=== PATIENT | male | born 1985 ===

== ENCOUNTER → 2017-02-09 | Outpatient (CLI) | payer OTHER ==
[~2017-02-09] MED LIST: CLR10 PO; IBUP-1050 PO
--- NOTE | 2017-02-09 08:58 | DIAGNOSTIC IMAGING REPORT ---
FUSION CT SINUSES W/O HISTORY: J30.9 Allergic [id number] Nasal septal [id number] Hypertr TECHNIQUE: Multiaxial CT images of the sinuses were performed and reformatted in the coronal plane without contrast. COMPARISON STUDY: None. FINDINGS: The frontal sinuses are clear. The mastoid air cells are clear. Minimal mucosal thickening within the sphenoid sinuses. Mild mucosal thickening within a few of the bilateral ethmoid air cells. Moderate polypoid mucosal thickening within the floor of the bilateral maxillary sinuses, right greater than left. No fluid levels within the paranasal sinuses. The lamina papyracea and orbital floors are intact. The left ostiomeatal unit is patent. Partial opacification of the right ethmoid infundibulum. Mild left nasal septal deviation. There is a small right nasal septal spur. The orbits are unremarkable. The visualized brain parenchyma is within normal limits. IMPRESSION: 1. Mild/moderate mucosal thickening within the paranasal sinuses as described above. No fluid levels. 2. The mastoid air cells are clear. 3. Mild left nasal septal deviation. Electronically signed by: Shan Dunn M.D. 02/09/2017 8:57 AM Dictated Date/Time: 02/09/2017 8:53 AM
== END | disposition home or self-care (01) ==
LOC: C.CTS 07:56
PROVIDERS: ATTEND Physician Assistant
DX: J34.2 Deviated nasal septum (principal); J30.9 Allergic rhinitis, unspecified; J34.3 Hypertrophy of nasal turbinates

== ENCOUNTER → 2017-04-13 | Day surgery (SDC) | payer OTHER ==
[2017-03-06 15:57] VITALS: Ht 165.1 cm; Wt 100.0 kg
[2017-04-11 17:22] LABS: BASO % 0.4 %; BASO ABS # 0.03 K/uL (0-0.2); COMPLETE YES; EOS % 3.5 %; HEMATOCRIT 35.2 % (42-52); IG% 0.1 %; LYMPH ABS # 3.04 K/uL (1.2-3.4); MEAN CELL VOLUME 80.7 fL (80-100); MEAN CORPUSCULAR HEMOGLOBIN 27.1 pg (25-34); MEAN CORPUSCULAR HGB CONC 33.5 g/dl (32-36); MEAN PLATELET VOLUME 9.2 fL (7.4-10.4); MONO % 6.1 %; NEUT % 45.9 %; PLATELET COUNT 338 K/uL (130-400); RED BLOOD COUNT 4.36 M/uL (4.7-6.1); WHITE BLOOD COUNT 6.91 K/uL (4.8-10.8)
[2017-04-11 17:33] LABS: PARTIAL THROMBOPLASTIN RATIO 1.1; PROTHROMBIN TIME (PATIENT) 10.3 SECONDS (9.0-12.0)
[2017-04-11 17:38] LABS: POTASSIUM 3.9 mmol/L (3.5-5.1)
[~2017-04-13] VITALS: Ht 165.1 cm; Wt 100.0 kg
[~2017-04-13] MED LIST changes: +ATROPINE SULFATE 0.1 MG/ML 5ML SYR IV PRN; +CEFAZOLIN 2000 MG/60 ML D5W IV SCH; +DEXAMETHASONE SOD INJ 4 MG/ML VIAL ONE; +EpHEDrine SULFATE INJ 50 MG/ML AMP IV PRN; +EpINEphrine INJ 1MG/ML AMP 1 MG/ML AMP ONE; +FENTANYL CITRATE INJ 50 MCG/1 ML 2 ML VIAL IV PRN; +FENTANYL CITRATE INJ 50 MCG/1 ML 2 ML VIAL ONE; +FLUMAZENIL 0.1 MG/1 ML 10 ML VIAL IV PRN; +HYDROCODONE/ACETAMOPHEN 5/325MG TAB PO PRN; +HYDROmorphone INJ 2 MG/ML SYR/VIAL IV PRN; +LABETALOL HCL IV 5 MG/ML 20ML IV PRN; +LACTATED RINGER'S 1000ML 1,000 ML IV SCH; +LIDOCAINE 4% MPF SOAK 5 ML = 1 DOSE TOP ONE; +LIDOCAINE HCL 2% 2 ML VIAL (20MG/ML) ONE; +LIDOCAINE/EPINEPHRINE 1% INJ 50 ML VIAL ONE; +MEPERIDINE HCL 25 MG/ML CARP IV PRN; +MIDAZOLAM HCL 1 MG/ML 2ML VIAL ONE; +NALOXONE HCL 0.4 MG/1 ML VIAL/CARP IV PRN; +ONDANSETRON INJ 2 MG/ML 2 ML VIAL IV PRN; +ONDANSETRON INJ 2 MG/ML 2 ML VIAL ONE; +OXYMETAZOLINE HCL 0.05% NA SPR 15 ML BTL PRN; +OXYMETAZOLINE HCL 0.05% NA SPR 15 ML BTL SCH; +PHENYLEPHRINE 100MCG/ML 5ML SYR IV PRN; +PROPOFOL IV EMULSION 10 MG/ML 20 ML VIAL IV ONE; +SUCCINYLCHOLINE CHLORIDE 20 MG/ML 10 ML VIAL IV ONE
--- NOTE | 2017-04-13 10:06 | History and Physical: Surg Cnt ---
History & Physical Date Apr 13, 2017. Chief Complaint CHRONIC SINUSITIS, SEPTAL DEVIATION, BILATERAL INFERIOR TURBINATE HYPERTROPHY History of Present Illness The patient is a 31 year old male with complaints of CHRONIC SINUSITIS, SEPTAL DEVIATION, BILATERAL INFERIOR TURBINATE HYPERTROPHY WITH SYMPTOMS DESPITE MAXIMAL MEDICAL RX. Past Medical/Surgical History Medical Problems: (1) EXT HEMRRHOID W COMP NEC (2) No Known Active Medical Problems PSH: S/P LASIK, S/P CYSTOSCOPY, S/P URETHROPLASTY Additional History Hepatic Disease: No Endocrine Disorder: No Kidney Disease: No Hypertension: No Heart Disease: No Bleeding Tendencies: No Infectious Diseases: No Allergies Coded Allergies: No Known Allergies (Unverified , 04/13/17) Home Medications Scheduled Loratadine (Claritin), 10 MG PO QAM Scheduled PRN Ibuprofen (Advil), 200 MG PO DAILY PRN for Pain Physical Examination Skin: warm/dry, no rash Eyes: normal inspection, EOMI, sclerae normal ENT: + pertinent finding (L>R DNS, B ITH, B MTH) Head: normocephalic, atraumatic Neck: supple, no adenopathy, trachea midline Respiratory/Chest: lungs clear, normal breath sounds, no respiratory distress Cardiovascular: regular rate, rhythm, no edema, no murmur Neurologic/Psych: no motor/sensory deficits, alert, normal reflexes, oriented x 3 Diagnosis CHRONIC SINUSITIS, SEPTAL DEVIATION, BILATERAL INFERIOR TURBINATE HYPERTROPHY Plan of Treatment B FESS/SEPTOPLASTY/INFERIOR TURBINATE REDUCTION
--- NOTE | 2017-04-13 11:22 | [facility] Operative Report ---
Operative Report Operative Date Apr 13, 2017. Pre-Operative Diagnosis Chronic Sinusitis, Septal Deviation, Bilateral Inferior Turbinate Hypertrophy Post-Operative Diagnosis Same Procedure(s) Performed Bilateral Endoscopic Sinus Surgery, Septoplasty, Bilateral Inferior Turbinate Reduction Surgeon Dr. Ashby System Safety Engineer Surgeon(s) None Estimated Blood Loss 50 mL Findings 1. MODERATE L>R DNS 2. SEVERE B ITH 3. B JULISSA BULLOSA 4. MUCOSAL INFLAMMATION B MAXILLARY AND ETHMOID SINUSES Specimens None I attest to the content of the Intraoperative Record and any orders documented therein. Any exceptions are noted below.
--- NOTE | 2017-04-13 11:25 | Discharge Instructions ---
Discharge Instructions Date of Service Apr 13, 2017. Admission Reason for Admission: Nasal Septal Deviation, Hypertrophy Turbinates, Discharge Discharge Diagnosis / Problem: SAME Discharge Goals Goal(s): Therapeutic intervention Activity Recommendations Activity Limitations: as noted below 1. LIGHT ACTIVITY FOR 2 WEEKS 2. NO DRIVING WHILE ON NORCO . Current Hospital Diet Patient's current hospital diet: Discharge Diet Recommended Diet: Regular Diet Procedures Procedures Performed: Bilateral Endoscopic Sinus Surgery, Septoplasty, Bilateral Inferior Turbinate Reduction Pending Studies Studies pending at discharge: no Medical Emergencies . Who to Call and When: Medical Emergencies: If at any time you feel your situation is an emergency, please call 911 immediately. . Non-Emergent Contact Non-Emergency issues call your: Surgeon . . "Provider Documentation" section prepared by David Ashby. . VTE Core Measure Inpt VTE Proph given/why not?: SCD's
[2017-04-13 12:08] VITALS: TEMP 36.4
--- NOTE | 2017-04-13 12:09 | Anesthesia Progress Nt - [facility] ---
Anesthesia Post Op Note Date & Time Apr 13, 2017 at 12:09 Vital Signs Pain Intensity: 0 Vital Signs Past 12 Hours Date Time Temp Pulse Resp B/P (MAP) Pulse Ox O2 Delivery O2 Flow Rate FiO2 04/13/17 12:01 74 12 04/13/17 12:01 72 12 124/83 99 04/13/17 12:00 36.7 73 12 124/83 99 Room Air 04/13/17 11:56 77 15 04/13/17 11:56 78 15 135/80 92 04/13/17 11:51 80 7 04/13/17 11:51 79 7 142/82 96 04/13/17 11:46 75 4 04/13/17 11:46 76 4 130/82 100 04/13/17 11:41 74 4 04/13/17 11:41 74 4 133/80 100 04/13/17 11:36 76 2 129/82 100 04/13/17 11:36 77 2 04/13/17 11:31 84 147/89 99 04/13/17 11:31 84 04/13/17 11:31 36.3 85 16 147/87 100 Humidified Oxygen 6 Diffusion Mask 04/13/17 08:54 36.3 79 16 130/85 (100) 97 Room Air Notes Mental Status: alert / awake / arousable, participated in evaluation Pt Amnestic to Procedure: Yes Nausea / Vomiting: adequately controlled Pain: adequately controlled Airway Patency, RR, SpO2: stable & adequate BP & HR: stable & adequate Hydration State: stable & adequate Anesthetic Complications: no major complications apparent
[2017-04-13 12:26] VITALS: BP 118/78; PULSE 74; O2SAT 99
--- NOTE | 2017-04-13 14:24 | OPERATIVE REPORT ---
DATE OF OPERATION: 04/13/2017 PREOPERATIVE DIAGNOSES: 1. Chronic rhinosinusitis. 2. Septal deviation. 3. Bilateral inferior turbinate hypertrophy. POSTOPERATIVE DIAGNOSES: 1. Chronic rhinosinusitis. 2. Septal deviation. 3. Bilateral inferior turbinate hypertrophy. PROCEDURES: 1. Bilateral endoscopic laurel bullosa resection. 2. Bilateral maxillary antrostomies. 3. Bilateral complete ethmoidectomies. 4. Septoplasty. 5. Bilateral inferior turbinate outfracture and turbinoplasty. SURGEON: Dr. David Ashby. ANESTHESIA: General endotracheal. ESTIMATED BLOOD LOSS: 50 mL. FINDINGS: 1. Bilateral laurel bullosa. 2. Moderate mucosal thickening involving the bilateral maxillary and ethmoid sinuses with severe inflammatory tissue. 3. Left greater than right septal deviation. 4. Severe bilateral inferior turbinate hypertrophy. SPECIMENS: None. COMPLICATIONS: None. INDICATIONS FOR THE PROCEDURE: The patient is a 31-year-old male with the above-mentioned history, which has been refractory to maximal medical therapy including systemic antibiotics and steroids. A CT scan of the sinuses revealed left greater than right septal deviation, bilateral maxillary sinus mucosal thickening with left greater than right ostiomeatal complex obstruction, and bilateral patchy ethmoid sinus mucosal thickening with severe bilateral inferior turbinate hypertrophy. The patient presents for the above-mentioned procedures on an outpatient elective basis. DESCRIPTION OF PROCEDURE: After informed consent had been obtained from the patient, the patient was wheeled to the operating room and placed on the operating table in the supine position. Monitors were placed. After induction of general endotracheal anesthesia, the patient was prepped in the usual fashion for an endoscopic sinus surgery. Lidocaine and epinephrine pledgets were placed into the bilateral nasal cavities and pressure applied. The left-sided pledgets were removed. A freer elevator was used to medialize the left middle turbinate. The left middle turbinate and lateral nasal wall were injected with 1% lidocaine with 1:100,000 epinephrine. Lidocaine and epinephrine pledget was then placed into the left middle meatus. The right side was then addressed in a similar fashion. The left-sided pledget was removed. A sickle knife was used to incise the left middle turbinate longitudinally and the lateral half of the middle turbinate was removed using straight Fredy-Cut forceps and powered instrumentation in order to perform an endoscopic left laurel bullosa resection. A freer elevator was then used to incise the uncinate process and a straight Fredy-Cut forceps and powered instrumentation was used to perform an uncinatectomy on the left hand side. The natural ostia of the left maxillary sinus was identified and this was enlarged anteriorly, inferiorly, and posteriorly using backbiting forceps and powered instrumentation. A complete ethmoidectomy was then performed using powered instrumentation. The right side was then addressed in a similar fashion with similar intraoperative findings. The nasal septum was then injected with 1% lidocaine with 1:100,000 epinephrine. A #15 scalpel was used to make a left Trav incision, through which the left-sided mucoperichondrial and mucoperiosteal flap was elevated. A #15 scalpel was then used to incise the quadrangular cartilage with care to preserve a 1.5-cm dorsal and caudal strut and the right-sided mucoperichondrial and mucoperiosteal flap was elevated through this cartilaginous incision. A Enrico Swivel knife was then used to remove the deviated portion of the quadrangular cartilage. A V-shaped osteotome, mallet, and Shai forceps was then used to remove a large bony septal spur, which was impinging on the airway posteriorly on both the left and the right hand side. It was more posteriorly on the right and more in the mid septum on the left. This resulted in the midline septum. The septal cavity was suctioned. The left Coppell incision was closed with several simple interrupted 4-0 chromic sutures. A 4-0 plain gut suture on a Ed needle was then used to perform a quilting stitch of the mucoperichondrial and mucoperiosteal flaps bilaterally to help prevent septal hematoma. A Ngo elevator was then used to infracture and subsequently outfracture the inferior turbinates bilaterally. These were injected with 1% lidocaine with 1:100,000 epinephrine. A 2.0-mm turbinate blade using powered instrumentation was then used to perform bilateral inferior turbinoplasties in a submucosal fashion. Sinonasal cavities and nasopharynx were then suctioned. Merogel was then placed into the bilateral ethmoid cavity/middle meati. An orogastric tube was placed and the stomach was suctioned free of air and stomach contents. This marked the end of the case. The patient tolerated the procedure well. There were no apparent complications. The patient was extubated and transferred to recovery room in stable condition. I attest to the content of the Intraoperative Record and any orders documented therein. Any exception s are noted below.
== END | disposition home or self-care (01) ==
LOC: X.SURG 08:43
DX: J32.9 Chronic sinusitis, unspecified (principal); J34.2 Deviated nasal septum; J34.3 Hypertrophy of nasal turbinates

== ENCOUNTER → 2017-08-08 | Outpatient (CLI) | payer OTHER ==
[~2017-08-08] MED LIST changes: -ATROPINE SULFATE 0.1 MG/ML 5ML SYR IV PRN; -CEFAZOLIN 2000 MG/60 ML D5W IV SCH; -DEXAMETHASONE SOD INJ 4 MG/ML VIAL ONE; -EpHEDrine SULFATE INJ 50 MG/ML AMP IV PRN; -EpINEphrine INJ 1MG/ML AMP 1 MG/ML AMP ONE; -FENTANYL CITRATE INJ 50 MCG/1 ML 2 ML VIAL IV PRN; -FENTANYL CITRATE INJ 50 MCG/1 ML 2 ML VIAL ONE; -FLUMAZENIL 0.1 MG/1 ML 10 ML VIAL IV PRN; -HYDROCODONE/ACETAMOPHEN 5/325MG TAB PO PRN; -HYDROmorphone INJ 2 MG/ML SYR/VIAL IV PRN; -IBUP-1050 PO; -LABETALOL HCL IV 5 MG/ML 20ML IV PRN; -LACTATED RINGER'S 1000ML 1,000 ML IV SCH; -LIDOCAINE 4% MPF SOAK 5 ML = 1 DOSE TOP ONE; -LIDOCAINE HCL 2% 2 ML VIAL (20MG/ML) ONE; -LIDOCAINE/EPINEPHRINE 1% INJ 50 ML VIAL ONE; -MEPERIDINE HCL 25 MG/ML CARP IV PRN; -MIDAZOLAM HCL 1 MG/ML 2ML VIAL ONE; -NALOXONE HCL 0.4 MG/1 ML VIAL/CARP IV PRN; -ONDANSETRON INJ 2 MG/ML 2 ML VIAL IV PRN; -ONDANSETRON INJ 2 MG/ML 2 ML VIAL ONE; -OXYMETAZOLINE HCL 0.05% NA SPR 15 ML BTL PRN; -OXYMETAZOLINE HCL 0.05% NA SPR 15 ML BTL SCH; -PHENYLEPHRINE 100MCG/ML 5ML SYR IV PRN; -PROPOFOL IV EMULSION 10 MG/ML 20 ML VIAL IV ONE; -SUCCINYLCHOLINE CHLORIDE 20 MG/ML 10 ML VIAL IV ONE
[2017-08-08 10:06] LABS: ALT/SGPT 36 U/L (12-78); BLOOD UREA NITROGEN 11 mg/dl (7-18); BUN/CREATININE RATIO 14.5 (10-20); CALCIUM 9.2 mg/dl (8.5-10.1); CARBON DIOXIDE 28 mmol/L (21-32); CHLORIDE 104 mmol/L (98-107); CHOLESTEROL 212 mg/dl (0-200); CREATININE 0.78 mg/dl (0.60-1.40); GLUCOSE 82 mg/dl (70-99); POTASSIUM 3.9 mmol/L (3.5-5.1); SODIUM 139 mmol/L (136-145); TRIGLYCERIDES 198 mg/dl (0-150); VERY LOW DENSITY LIPOPROT CALC 40 mg/dl
[2017-08-08 10:08] LABS: ALKALINE PHOSPHATASE 67 U/L (45-117); AST/SGOT 28 U/L (15-37); CHOLESTEROL/HDL RATIO 4.8; HDL CHOLESTEROL 44 mg/dl; LDL CHOLESTEROL CALCULATED 128 mg/dl
[2017-08-08 10:14] LABS: HEMATOCRIT 35.7 % (42-52); MEAN CORPUSCULAR HEMOGLOBIN 25.9 pg (25-34); MEAN CORPUSCULAR HGB CONC 32.8 g/dl (32-36); MEAN PLATELET VOLUME 9.7 fL (7.4-10.4); PLATELET COUNT 362 K/uL (130-400); RED BLOOD COUNT 4.52 M/uL (4.7-6.1); WHITE BLOOD COUNT 6.36 K/uL (4.8-10.8)
[2017-08-08 10:38] LABS: BASO % 0.5 %; BASO ABS # 0.03 K/uL (0-0.2); COMPLETE YES; EOS % 2.8 %; IG% 0.3 %; LYMPH % 56.8 %; LYMPH ABS # 3.61 K/uL (1.2-3.4); MONO % 7.5 %; NEUT % 32.1 %
== END | disposition home or self-care (01) ==
LOC: C.LAB1850 07:06
PROVIDERS: ATTEND Physician Assistant
DX: R73.9 Hyperglycemia, unspecified (principal); K76.0 Fatty (change of) liver, not elsewhere classified